=== PATIENT | male | born 1970 | race Caucasian/White ===

== ENCOUNTER 2018-04-26 00:42 | Outpatient (CLI) | payer MEDICARE, OTHER, SELFPAY ==
--- NOTE | 2018-04-26 09:46 | DI.REPORT_ITS ---
SYMPTOM/DIAGNOSIS: LUMBAGO, RADIATION TO FLANKS, PERSISTENT FOR 4 MONTHS LUMBOSACRAL SPINE: 04/26 Six views were obtained. There is mild disc space narrowing at L5-S1 with hypertrophic changes of the end plates at this level. Otherwise intervertebral disc spaces are well maintained. Mild hypertrophic spurring of the facet joints noted particularly in the lower lumbar region. SI joints show minimal degenerative changes as well. No evidence of spondylolysis or spondylolisthesis. No compression fracture is seen. CONCLUSION: No evidence of acute process. Mild degenerative changes. Please note that there is calcification overlying the lower pole of the left kidney and the possibility of nephrolithiasis is raised.
== END 2018-04-26 00:43 ==
PROVIDERS: PCP Internal Medicine; Visit Provider Internal Medicine
DX: M54.16 Radiculopathy, lumbar region (principal); M51.37 Other intervertebral disc degeneration, lumbosacral region
CPT/HCPCS: 72110

== ENCOUNTER → 2019-07-03 10:11 | Outpatient (BNVA) | payer MEDICARE, OTHER, SELFPAY | PROVIDERS: PCP Internal Medicine; Referring Provider Internal Medicine; Visit Provider Psychiatry & Neurology Neurology | DX: F39 Unspecified mood [affective] disorder (principal); R41.844 Frontal lobe and executive function deficit; R41.3 Other amnesia; Z87.820 Personal history of traumatic brain injury | CPT/HCPCS: 99204 ==

== ENCOUNTER 2019-07-09 09:44 | Outpatient (REF) | payer MEDICARE, OTHER, SELFPAY ==
[2019-07-09 20:15] LABS: TSH (W/Ref FT4) 2.15 uIU/mL (0.36-3.74); Vitamin B12 342 pg/mL (193-986)
== END 2019-07-09 10:04 ==
LOC: LBN 09:44
PROVIDERS: PCP Internal Medicine; Referring Provider Psychiatry & Neurology Neurology; Visit Provider Internal Medicine
DX: R41.3 Other amnesia (principal); I10 Essential (primary) hypertension
CPT/HCPCS: 82607; 84443

== ENCOUNTER → 2019-12-18 08:47 | Outpatient (BNVA) | payer MEDICARE, OTHER, SELFPAY | PROVIDERS: PCP Internal Medicine; Referring Provider Internal Medicine; Visit Provider Psychiatry & Neurology Neurology | DX: R69 Illness, unspecified (principal) ==

== ENCOUNTER 2020-03-19 13:13 | Outpatient (REF) | payer MEDICARE, OTHER, SELFPAY ==
[2020-03-19 19:23] LABS: HCT 48.6 % (40.0-50.0); HGB 16.4 g/dL (13.5-17.5); Mean Corp. HGB Concentration 33.7 g/dL (32.0-36.0); Mean Corpuscular Hemoglobin 30.1 pg (27.0-33.0); Mean Corpuscular Volume 89.3 fL (80-95); Mean Platelet Volume 11.5 fL (8.0-11.0); Platelet Count 183 x1000/uL (130-400); RBC 5.44 m/cumm (4.50-6.00); RBC Distribution Width 13.7 % (11.8-14.1)
[2020-03-19 19:43] LABS: Anion Gap 11.6 mmol/L (3-11); BUN 17 mg/dL (7-18); CO2 25.4 mmol/L (21.0-32.0); CREATININE 1.04 mg/dL (0.70-1.30); Calcium 8.9 mg/dL (8.5-10.1); Chloride 104 mmol/L (98-107); Glucose 100 mg/dL (74-106); Potassium 4.2 mmol/L (3.5-5.1); Sodium 141 mmol/L (136-145); Uric Acid 6.6 mg/dL (3.5-7.2)
[2020-03-19 20:40] LABS: ESR 9 mm/hr (0-15)
== END 2020-03-19 13:33 ==
LOC: NCHCN 13:13
PROVIDERS: PCP Internal Medicine; Visit Provider Internal Medicine
DX: M10.9 Gout, unspecified (principal)
CPT/HCPCS: 80048; 85027; 85652; 84550; 86140

== ENCOUNTER 2021-08-16 19:02 | Outpatient (REF) | payer MEDICARE, OTHER, SELFPAY ==
[2021-08-16 19:39] LABS: ALT 25 U/L (16-63); Anion Gap 7.9 mmol/L (3-11); BUN 12 mg/dL (7-18); CO2 30.1 mmol/L (21.0-32.0); CREATININE 1.1 mg/dL (0.70-1.30); Calcium 8.5 mg/dL (8.5-10.1); Calculated LDL 105 mg/dL (<100); Chloride 104 mmol/L (98-107); Cholesterol 218 mg/dL (<200); Glucose 95 mg/dL (74-106); HDL Cholesterol 50 mg/dL (40-60); Potassium 4.5 mmol/L (3.5-5.1); Sodium 142 mmol/L (136-145); Triglyceride 319 mg/dL (<150)
== END 2021-08-16 19:03 | disposition home or self-care (01) ==
LOC: NCHCN 19:02
PROVIDERS: PCP Internal Medicine; Visit Provider Internal Medicine
DX: D35.00 Benign neoplasm of unspecified adrenal gland (principal); R31.0 Gross hematuria; R00.2 Palpitations
CPT/HCPCS: 80048; 80061; 84460

== ENCOUNTER 2022-06-22 19:26 | Outpatient (REF) | payer MEDICARE, OTHER, SELFPAY ==
[2022-06-22 21:06] LABS: HCT 46.7 % (40.0-50.0); HGB 15.5 g/dL (13.5-17.5); MCH 30.2 pg (27.0-33.0); MCHC 33.2 % (32.0-36.0); MCV 91 fL (80-95); MPV 12.2 fL (8.0-11.0); Platelet Count 246 10^3/uL (130-400); RBC 5.13 10^6/uL (4.36-5.78); RDW 13.2 % (11.8-14.1); RDW-SD 44.3 fL; WBC 11.37 10^3/uL (4.4-10.8)
[2022-06-22 21:27] LABS: ALT 25 U/L (16-63); AST 19 U/L (15-37); Albumin 4.1 g/dL (3.4-5.0); Alkaline Phosphatase 66 U/L (46-116); Anion Gap 8.1 mmol/L (3-11); BUN 16 mg/dL (7-18); Bilirubin, Total 0.3 mg/dL (0.2-1.0); CO2 27.9 mmol/L (21.0-32.0); CREATININE 1.1 mg/dL (0.70-1.30); Calcium 9.2 mg/dL (8.5-10.1); Calculated LDL 114 mg/dL (<100); Chloride 102 mmol/L (98-107); Cholesterol 236 mg/dL (<200); Estimated GFR 80.77 (mL/min/1.73m2); Glucose 103 mg/dL (74-106); HDL Cholesterol 48 mg/dL (40-60); Potassium 4.5 mmol/L (3.5-5.1); Sodium 138 mmol/L (136-145); TSH 1.21 uIU/mL (0.36-3.74); Total Protein 7.6 g/dL (6.4-8.2); Triglyceride 373 mg/dL (<150)
== END 2022-06-22 19:27 | disposition home or self-care (01) ==
LOC: NCHCN 19:26
PROVIDERS: PCP Internal Medicine; Visit Provider Internal Medicine
DX: R00.2 Palpitations (principal); R00.0 Tachycardia, unspecified
CPT/HCPCS: 80053; 80061; 85027; 84443

== ENCOUNTER 2022-06-30 10:52 | Outpatient (RCR) | payer MEDICARE, OTHER, SELFPAY ==
--- NOTE | 2022-06-30 11:00 | HOLTER_ITS ---
APPROVED REPORT Conclusion This is a 48-hour Holter monitor ordered for palpitations Rhythm throughout was sinus with an average heart rate of 70. Minimum was 51, maximum 112 There were very rare isolated atrial premature beats There were occasional ventricular ectopic beats There was no atrial fibrillation, no high-grade AV block, no SVT, no pauses greater than 3 seconds No patient symptoms were reported
== END 2022-07-11 23:59 | disposition home or self-care (01) ==
LOC: CARDOPNVT 10:52
PROVIDERS: PCP Internal Medicine; Visit Provider Internal Medicine
DX: R00.2 Palpitations (principal)
CPT/HCPCS: 93227; 93225; 93226

== ENCOUNTER → 2023-07-18 00:41 | Outpatient (CLI) | payer MEDICARE, SELFPAY ==
--- NOTE | 2023-07-18 | ETT_ITS ---
APPROVED REPORT Exam: Exercise Treadmill Patient Location: Out-Patient Room/Bed: Stress Nurse: Charlee Ko RN Ordering Provider:MARRY IBARRA, Contact Number: [phone] BMI: 36.51 Baseline Rhythm: Sinus Bradycardia Indications: CAD, Medical History Medical History: Athersclerosis, TBI, Palpitations, alcohol abuse, obesity, smoker, short term memory loss Cardiac Medications: Fluoxetine, multivitamin, lamotrigine, atorvastatin Allergies: NKDA Cardiac Risk Factors: Family hx, CVD, smoker, obesity Previous Cardiac Procedures: None Pretest Chest Pain Characteristics: None Exercise History: Sedentary Physical Disabilities: None Lung Sounds: Clear to auscultation Heart Sounds: Tachycardia Stress Test Details Test: Exercise stress testing was performed using a Evan protocol. Rest Stress HR Resting HR Supine: 51 bpm Max Heart Rate (APMHR): 166 bpm Resting HR Standin bpm Target HR (85% APMHR): 141 bpm Max HR Achieved: 132 bpm % of APMHR: 80 Recovery HR: 65 bpm HR response to stress: Normal HR response to stress BP Resting BP Supine: 114/82 mmHg Resting BP Standin/72 mmHg Max BP: 174/84 mmHg Recovery BP: 138/74 mmHg BP response to stress: Normal blood pressure response to stress. ECG Resting ECG: Sinus Bradycardia Ectopy: None Stress ECG: Sinus Tachycardia ST Change: Nondiagnostic low heart rate Arrhythmia: None Recovery ECG: Sinus Rhythm Recovery ST Change: Nondiagnostic low heart rate Recovery Arrhythmia: None Clinical Reason for Termination: Fatigue, Dyspnea Stress Symptoms: Moderate fatigue, moderate dyspnea Exercise duration: 06 min05 sec Highest Stage Reached: Stage 2: 2.5 mph at 12% grade. Exercise capacity: 8.31 METs Angina Score: None Mcgowan Treadmill Score: 6.4 Rate Pressure Product: [id number] Stress ECG Conclusion 1. The resting electrocardiogram was normal 2. Patient exercised on the Evan protocol and completed a workload of 8.31 METS, stopping due to fat igue 3. Normal heart rate and blood pressure response to exercise. Peak heart rate achieved was 80% of ma ximal predicted for age 4. At that heart rate and workload, there was no electrocardiographic evidence of myocardial ischemia though the test was technically nondiagnostic as it did not achieve 85% MPHR for age 5. There were no dysrhythmias Mcgowan Treadmill Score is 6.4 which is Low risk. Stress Test Summary STAGE Time (mins) Speed (mph) Grade (%) HR BP SpO2 SYMPTOMS METS Supine 51 114/82 92 Standing 63 124/72 92 1 3 1.7 10 93 128/80 94 4.5 2 6 2.5 12 130 158/80 95 Moderate dysonea, moderate fatigue 7 1 min recovery 97 174/84 95 Mild dyspnea 3 min recovery 66 138/72 95 6 min recovery 65 138/74 All symptoms resolved
== END ==
PROVIDERS: PCP Internal Medicine; Visit Provider Internal Medicine
DX: I25.10 Atherosclerotic heart disease of native coronary artery without angina pectoris (principal)
CPT/HCPCS: 93016; 93018; 93017

== ENCOUNTER → 2023-07-19 10:16 | Outpatient (BNVA) | payer MEDICARE, SELFPAY | PROVIDERS: PCP Internal Medicine; Referring Provider Internal Medicine; Visit Provider Podiatrist | DX: L84 Corns and callosities (principal); Q82.8 Other specified congenital malformations of skin; M79.671 Pain in right foot | CPT/HCPCS: 17110 ==

== ENCOUNTER → 2023-11-22 10:22 | Outpatient (BNVA) | payer MEDICARE, SELFPAY | PROVIDERS: PCP Internal Medicine; Referring Provider Internal Medicine; Visit Provider Podiatrist | DX: L60.3 Nail dystrophy (principal); M79.671 Pain in right foot; Q82.8 Other specified congenital malformations of skin | CPT/HCPCS: 99212 ==

== ENCOUNTER 2024-02-14 15:01 | Outpatient (REF) | payer MEDICARE, BC, SELFPAY ==
[2024-02-19 20:26] LABS: Index Value 0.78 (0.00-0.79); Mumps Ab, IgG Positive; Mumps Ab, IgM Negative (Negative)
== END 2024-02-14 15:02 | disposition home or self-care (01) ==
LOC: LBN 15:01
PROVIDERS: PCP Internal Medicine; Visit Provider Physician Assistant
DX: R22.1 Localized swelling, mass and lump, neck (principal); K11.21 Acute sialoadenitis; J02.9 Acute pharyngitis, unspecified
CPT/HCPCS: 83735; 86735

== ENCOUNTER 2024-03-07 15:47 | Outpatient (REF) | payer MEDICARE, BC, SELFPAY ==
[2024-03-07 19:09] LABS: Abs Immature Grans 0.05 10^3/uL (0.0-0.06); Absolute Basophil Count 0.08 10^3/uL (0.0-0.2); Absolute Eosinophil Count 0.25 10^3/uL (0.0-0.7); Absolute Lymphocyte Count 2.18 10^3/uL (1.2-3.4); Absolute Monocyte Count 0.83 10^3/uL (0.1-0.8); Absolute Neutrophil Count 5.28 10^3/uL (1.2-6.7); Basophils % 0.9 %; Eosinophils % 2.9 %; HCT 46.1 % (40.0-50.0); HGB 15.3 g/dL (13.5-17.5); Immature Grans % 0.6 %; Lymphocytes % 25.1 %; MCH 30.1 pg (27.0-33.0); MCHC 33.2 % (32.0-36.0); MCV 91 fL (80-95); MPV 10.9 fL (8.0-11.0); Monocytes % 9.6 %; Neutrophils % 60.9 %; Platelet Count 233 10^3/uL (130-400); RBC 5.08 10^6/uL (4.36-5.78); RDW 12.6 % (11.8-14.1); RDW-SD 41.8 fL; WBC 8.67 10^3/uL (4.4-10.8)
[2024-03-07 19:31] LABS: Hemoglobin A1C 5.6 % (<5.7)
[2024-03-07 20:42] LABS: TSH 2.08 uIU/Ml (0.36-3.74); Vitamin D 25 Total 27.4 ng/mL (30-100)
== END 2024-03-07 15:48 | disposition home or self-care (01) ==
LOC: LBN 15:47
PROVIDERS: PCP Internal Medicine; Visit Provider Registered Nurse
DX: Z51.81 Encounter for therapeutic drug level monitoring (principal); F59 Unspecified behavioral syndromes associated with physiological disturbances and physical factors; S06.9X9A Unspecified intracranial injury with loss of consciousness of unspecified duration, initial encounter
CPT/HCPCS: 80175; 82306; 83036; 84443; 85025

== ENCOUNTER → 2024-10-01 12:58 | Outpatient (BNVA) | payer MEDICARE, BC, SELFPAY | PROVIDERS: PCP Internal Medicine; Referring Provider Internal Medicine; Visit Provider Podiatrist | DX: L60.3 Nail dystrophy (principal); M79.671 Pain in right foot; Q82.8 Other specified congenital malformations of skin; L84 Corns and callosities | CPT/HCPCS: 17110 ==

== ENCOUNTER 2024-12-26 19:13 | Outpatient (REF) | payer MEDICARE, BC, SELFPAY ==
[2024-12-26 20:26] LABS: ALT 29 U/L (16-63); AST 19 U/L (15-37); Alkaline Phosphatase 78 U/L (46-116); Anion Gap 7.2 mmol/L (3-11); BUN 14 mg/dL (7-18); Bilirubin, Total 0.3 mg/dL (0.2-1.0); CO2 32.8 mmol/L (21.0-32.0); CREATININE 1.2 mg/dL (0.70-1.30); Calcium 9.6 mg/dL (8.5-10.1); Calculated LDL 59 mg/dL (<100); Chloride 107 mmol/L (98-107); Cholesterol 187 mg/dL (<200); Estimated GFR 71.42 (mL/min/1.73m2); Glucose 106 mg/dL (74-106); HDL Cholesterol 70 mg/dL (>or=40); Sodium 147 mmol/L (136-145); Total Protein 7.4 g/dL (6.4-8.2); Triglyceride 291 mg/dL (<150)
[2024-12-26 21:01] LABS: Uric Acid 5.7 mg/dL (3.5-7.2)
[2024-12-30 10:04] LABS: Hepatitis C Ab w Rflx HCV PCR Negative (Negative)
[2024-12-30 11:55] LABS: HIV-1/2 Ag & Ab Screen Negative (Negative)
== END 2024-12-26 19:14 | disposition home or self-care (01) ==
LOC: NCHCN 19:13
PROVIDERS: PCP Internal Medicine; Visit Provider Internal Medicine
DX: E78.5 Hyperlipidemia, unspecified (principal)
CPT/HCPCS: 80053; 80061; 86803; 87389; 84550

== ENCOUNTER 2025-01-02 02:27 | Outpatient (CLI) | payer MEDICARE, BC, SELFPAY ==
--- NOTE | 2025-01-30 11:13 | W.PFT ---
Date of service: 01/02/25 Time of Service: 14:24 Pulmonary Function Test Result Indications: Smoking Interpretation Spirometry: There is moderate airflow limitation. Impression Moderate airflow obstruction Clinical Correlation therefore is recommended.
== END 2025-01-02 02:28 | disposition home or self-care (01) ==
LOC: RT 02:27
PROVIDERS: PCP Internal Medicine; Visit Provider Student in an Organized Health Care Education/Training Program
DX: F17.210 Nicotine dependence, cigarettes, uncomplicated (principal); Z13.83 Encounter for screening for respiratory disorder NEC
CPT/HCPCS: 94010

== ENCOUNTER 2025-01-15 00:32 | Outpatient (CLI) | payer MEDICARE, BC, SELFPAY ==
--- NOTE | 2025-01-15 | DI.CTLCSR_ITS ---
Exam(s) CT CHEST LUNG CANCER SCREEN EXAM: CT CHEST LUNG CANCER SCREEN CLINICAL HISTORY: TOBACCO DEPENDENCE CAUSED BY CIGARETTES,f17.210,CURRENT SMOKER,SCREENING. TECHNIQUE: Imaging Protocol: Low Dose Technique CONTRAST MATERIAL: None COMPARISON: No exams were available for comparison FINDINGS: CHEST: LUNGS: There is a noncalcified right lower lobe nodule measuring 7 mm (series 3/image 116). No other right lower lobe nodules. There is a tiny 2 millimeter benign granuloma in the lateral aspect of th e right upper lobe. No significant left lung nodules. Some scarring in the anterior aspect of both upper lobes is noted. No confluent infiltrates. No pleural effusions. MEDIASTINUM: There is no obvious hilar nor mediastinal adenopathy. CARDIAC: Heart size is normal. There is mild thickening of the anterior pericardium. Caliber of the thoracic aorta is within normal limits. OTHER: Gallstones noted. OSSEOUS: No significant osseous lesions.No fractures. IMPRESSION: 1. There is a 7 millimeter noncalcified nodule in the right lower lobe. 2. No other significant nodules and no pleural effusions 3. Lung RADS Cat 3 - Probably Benign: Probably benign finding(s) - short term follow-up suggested; in clude nodules with a low likelihood of becoming a clinically active cancer. Lung-RADS 1.0 CATEGORIES: Category 0 - Prior chest CT exam(s) being located for comparison. Category 1 - Annual screening in 12 months. No nodules or definitely benign nodules. Category 2 - Annual screening in 12 months. Benign appearance. Nodules with low likelihood of becomin g active cancer. Category 3 - 6-month follow-up. Probably benign. Short-term follow-up suggested. Nodules with low lik elihood of becoming active cancer. Category 4A - 3-month follow-up and CT/PET if >8 mm in size. Suspicious finding. Findings which requi re additional testing. Category 4B - Findings which require additional testing and tissue sampling. Category 4X - Category 3 or 4 nodules with additional features or imaging findings that increases the suspicion of malignancy. Modifier S- Potentially clinically significant findings (non lung cancer) RADIATION DOSE DELIVERED: 76.6mGy.cm Total DLP DATA REPOSITORY: All CT scans at this facility are submitted to the National Radiology Data Registry (NRDR) Dose Index Registry (DIR) with the [employer] (ACR). RADIATION OPTIMIZATION: All CT scans at this facility use at least one of these dose optimization te chniques: automated exposure control; mA and/or kV adjustment per patient size (includes targeted exa ms where dose is matched to clinical indication); or iterative reconstruction.
== END 2025-01-15 00:52 ==
LOC: DI 00:33
PROVIDERS: PCP Internal Medicine; Visit Provider Internal Medicine
DX: F17.210 Nicotine dependence, cigarettes, uncomplicated (principal); Z12.2 Encounter for screening for malignant neoplasm of respiratory organs; R91.8 Other nonspecific abnormal finding of lung field
CPT/HCPCS: 71271

== ENCOUNTER → 2025-04-30 08:47 | Outpatient (BNVA) | payer MEDICARE, BC, SELFPAY | PROVIDERS: PCP Internal Medicine; Referring Provider Internal Medicine; Visit Provider Physical Therapy Assistant | DX: Z12.11 Encounter for screening for malignant neoplasm of colon (principal) | CPT/HCPCS: S0285 ==

== ENCOUNTER 2025-05-15 07:32 | Day surgery (SDC) | payer MEDICARE, BC, SELFPAY ==
[2025-05-15 07:44] VITALS: BP 158/98; PULSE 77; RESP 16; TEMP 36; O2SAT 96
[2025-05-15] MEDS: Lactated Ringers 1,000 ML 80 ML IV (08:14)
--- NOTE | 2025-05-15 09:42 | W.ANESPRE ---
General Info Date of Service Date Performed: 05/15/25 Height: 6 ft 4 in Weight: 147.6 kg Body Mass Index (BMI): 39.6 Surgical Procedure: Operation Date: 05/15/25 09:20 Proposed Procedure Side Surgeon celso Rodríguez MD Meds Allergies and Home Medications Allergies Allergy/AdvReac Type Severity Reaction Status Date / Time No Known Allergies Allergy Verified 05/15/25 07:48 Home Medication ?Medication ?Instructions ?Recorded fluoride (sodium) 0.2 % dental 10 ml dental QWEEK 05/24/19 solution (PreviDent) Held on 05/13/25. Instructions: Changed by Provider ibuprofen 800 mg tablet 800 mg PO TID 05/24/19 multivitamin 1 tab PO DAILY 05/24/19 cyanocobalamin (vitamin B-12) 1,000 mcg PO DAILY #90 caps 08/13/20 1,000 mcg capsule fluoxetine 20 mg/5 mL (4 mg/mL) 30 mg PO DAILY 03/22/23 oral solution fluticasone propionate 50 2 spray intranasal DAILY 03/22/23 mcg/actuation nasal spray,suspension lamotrigine 200 mg tablet 200 mg PO DAILY 03/22/23 atorvastatin 20 mg tablet 20 mg PO DAILY 09/20/24 bisacodyl 5 mg tablet,delayed 5 mg PO ONCE #4 tabs 04/30/25 release (Dulcolax (bisacodyl)) polyethylene glycol 3350 17 17 g PO ONCE #238 grams 04/30/25 gram/dose oral powder Current Visit Medications: Current Medications Generic Name Dose Route Start Last Admin Trade Name Freq PRN Reason Stop Dose Admin Ringer's Solution 1,000 mls @ 80 mls/hr 05/15/25 06:00 05/15/25 08:14 IV 05/15/25 23:59 80 mls/hr INFUSION LAZARA Administration IV Miscellaneous Supplies 1 each 05/15/25 06:00 Iv Access IV 05/15/25 23:59 DIRECTED LAZARA Sodium Biphosphate/Sodium Phosphate 133 - 266 ml 05/14/25 14:15 Na Phosphate Enema-Adult 133 Ml Btl PA 06/13/25 14:14 PRN PRN Sodium Chloride 0 ml 05/15/25 06:00 Normal Saline Flush 10 Ml Syr IV 05/15/25 23:59 PRN PRN Sodium Chloride 0 ml 05/15/25 06:00 Normal Saline 10 Ml Vial IJ 05/15/25 23:59 DIRECTED PRN Sterile Water 0 ml 05/15/25 06:00 Water,Injection,Sterile 10 Ml Vial IJ 05/15/25 23:59 DIRECTED PRN PFSH Active Problems Active Problems: Problem Status Onset Code Long toenail Acute L60.2 Intracranial injury Acute S06.9XAA Amnesia Acute R41.3 Tobacco dependence Acute F17.200 Atherosclerosis of artery Acute I70.90 Porokeratosis Acute Q82.8 Keratosis punctata (palmaris et plantaris) Acute L85.2 Foot pain, right Acute M79.671 Smoker Acute F17.200 Tachycardia Acute R00.0 Nail dystrophy Acute L60.3 Mood disorder Acute F39 Frontal lobe deficit Acute R41.844 Short-term memory loss Acute R41.3 TBI (traumatic brain injury) Acute S06.9X9A Palpitations Acute R00.2 Hand tingling Acute R20.2 Gross hematuria Acute R31.0 Facial skin lesion Acute L98.9 Skin tag Acute L91.8 Medical History Medical History Dyslipidemia Vitamin D deficiency Benign neoplasm of adrenal gland Pityriasis versicolor Left ureteral stone (05/03/16) Adenoma of right adrenal gland (05/03/16) Gout Ureteral calculus Adrenal adenoma benign Lumbago with sciatica resolved Surgical History Surgical History S/P craniotomy Tobacco Smoking/Tobacco Use Status: Current every day Tobacco Type: cigarettes Alcohol Alcohol Intake: current Alcohol intake frequency: a few times a week Alcohol type: beer Substance Use Substance use: Daily Substance use type: marijuana Vital Signs and Lab Results Vital Signs Most Recent Vital Signs in EMR: Most Recent Vital Signs Temp Pulse Resp BP Pulse Ox 36 C L 77 16 158/98 H 96 05/15/25 07:44 05/15/25 07:44 05/15/25 07:44 05/15/25 07:44 05/15/25 07:44 Anesthesia Assessment and Plan Anesthesia History Personal History: No History of Anesthesia Complications Family History: No Family History of Anesthesia Complications Exercise Tolerance Exercise Tolerance: Metabolic Equivalents>4 Pertinent Negatives Pertinent Negatives: No Symptoms of GERD Cardiac & Pulmonary Exam Cardiac Exam: Normal S1/S2 Heart Sounds Pulmonary Exam: Clear Bilateral Breath Sounds Implantable Cardiac Device Does patient have a Pacemaker or an ICD?: No Airway Exam Known Difficult Airway: No Mallampati Class: 2 Mouth Opening: Normal (> 3cm) Thyromental Distance: Greater than 3 cm Neck Range of Motion: Full ROM Neck Circumference: Normal Teeth Condition: Normal Dentition ASA Classification ASA Score: ASA 2 Emergency Case?: No NPO Status NPO Status: NPO Clears >2 hours, Solids >8 hours Anesthesia Plan Resuscitation Status: Full Code Anesthesia Technique: General Anesthesia Airway Planned: Natural Airway Monitors Used: Standard Monitors
[2025-05-15 09:43] VITALS: BMI 39.6
--- NOTE | 2025-05-15 09:51 | W.PM.DSUDISC ---
Date of service: 05/15/25 Discharge Plan Disposition Condition: Stable Discharge Details Attending Provider: Lucia Rodríguez Primary Care Provider: Sunny Magallanes Home Meds and New Rx's Prescriptions: Continued atorvastatin 20 mg tablet 20 mg PO DAILY multivitamin Tablet 1 tab PO DAILY fluoride (sodium) [PreviDent] 0.2 % solution 10 ml DT QWEEK ibuprofen 800 mg tablet 800 mg PO TID cyanocobalamin (vitamin B-12) 1,000 mcg capsule 1,000 mcg PO DAILY Qty: 90 3RF fluoxetine 20 mg/5 mL (4 mg/mL) solution 30 mg PO DAILY fluticasone propionate 50 mcg/actuation spray,suspension 2 spray intranasal DAILY Rx Instructions: administer into each nostril lamotrigine 200 mg tablet 200 mg PO DAILY Discontinued bisacodyl [Dulcolax (bisacodyl)] 5 mg tablet,delayed release (DR/EC) 5 mg PO ONCE Qty: 4 0RF Rx Instructions: Take per colonoscopy instructions provided by ordering providers office polyethylene glycol 3350 17 gram/dose powder 17 g PO ONCE Qty: 238 0RF Rx Instructions: Take per colonoscopy instructions provided by ordering providers office Discharge Instructions Additional Instructions: Four polyps seen and removed, one was a 25mm (very large) polyp from the right side of the colon. Timing of next colonoscopy will depend on the path of the polyps. You will likely need another colonoscopy in 1-3 years. I will notify you in writing of the answer when I get our polyp biopsy result back after 10 days. Stand Alone Forms: Anesthesia Discharge Inst., Colonoscopy Post Instructions, Bobby Merchant (DSU) Activity:: Activity as Tolerated Diet:: As Tolerated DS: Diagnosis Discharge Diagnosis (1) Screening for colorectal cancer: Status: Acute
--- NOTE | 2025-05-15 09:54 | COLE_ITS ---
Date of service: 05/15/25 Time of Service: 10:30 Colonoscopy Report Pre-op diagnosis general: Screening for colorectal cancer Post-op diagnosis procedure note: same Procedure: Colonoscopy with cold and hot snare polypectomy Surgeon: Lucia Rodríguez Anesthesia Type: General:No Airway Estimated blood loss (mL): 0 Pathology: none sent Complications: None Disposition: same day Indications: screening for colorectal cancer Prep: Miralax/Dulcolax (Good) Procedure Description: Patient is here for routine screening colonoscopy. Informed consent was obtained and the patient was taken to the procedure area. The patient was placed in left lateral decubitus position on the procedure table. Timeout was performed. Anesthesia was induced. A lubricated colonoscope was inserted t hrough the anus and passed to the cecum. The cecum was identified by the ileocecal valve and the appendiceal orifice. The scope was then slowly withdrawn and the colonic and rectal mucosa examined. Ascending colon with 25mm pedunculated polyp and 8mm pedunculated polyp. The larger polyp was removed with hot snare and retrieved with Sandhu net intact through the rectum. Resolution endoclip used to close the mucosa. The 8mm polyp was hot snared intact and removed through the scope and suction trap with Sandhu net. Descending colon with 6mm pedunculated polyp removed with hot snare and retrieved with polyp trap. Sigmoid colon with 5mm pedunculated polyp removed with cold snare and retrieved with polyp trap. No diverticulosis was seen. The scope was retroflexed in the anorectal junction examined. Uncomplicated internal hemorrhoids present. Assessment and plan; Multiple ascending colon polyps including 25mm polyp. Descending colon polyp. Sigmoid polyp. Four polyps seen and removed, one was a 25mm pedunculated polyp from the ascending colon. Timing of next colonoscopy will depend on the path of the polyps.
--- NOTE | 2025-05-15 10:03 | BOWEL_PTH ---
PATIENT: Jose Ayala IV LOC: [facility] U#:[id number] AGE/SX: 54/M ROOM: RE05/15/[address]: Lucia Rodríguez MD : 1970 BED: DIS: 05/15/2025 SPEC #: [id number] RECD: 05/15/25 12:51 STATUS: ILDA REQ #: [id number] [place]: 05/15/25 10:[address]: Lucia Rodríguez DEPT: Surgical Specimen RECD BY: Anna Howard ENTERED: 05/15/25 12:52 SP TYPE: Bowel OTHR DR: Sunny Magallanes Tissues: 1 - BIOPSY BOWEL 2 - BIOPSY BOWEL 3 - BIOPSY BOWEL Procedures: GROSS AND MICRO LEVEL 4 Comments: [id number]
[2025-05-15 10:39] VITALS: BP 118/74; PULSE 68; RESP 16; TEMP 36; O2SAT 93
--- NOTE | 2025-05-15 10:59 | W.ANESPOSTOP ---
Postoperative Evaluation Date, Time and Location Date Performed: 05/15/25 Time Performed: 10:59 Patient Location: Day Surgery Unit Vital Signs Most Recent Imported Vital Signs: Most Recent Vital Signs Temp Pulse Resp BP Pulse Ox 36 C L 68 16 118/74 93 05/15/25 10:39 05/15/25 10:39 05/15/25 10:39 05/15/25 10:39 05/15/25 10:39 Pain Score Most Recent Pain Score: Most Recent Pain Score Pain Level 0 05/15/25 10:39 Assessment Mental Status: Awake (Alert & Oriented to Patient Baseline) Airway and Respiratory Function: Patent airway with normal (patient baseline) respiratory exam Cardiovascular Function: Hemodynamically Stable Hydration Status: Adequately Hydrated Nausea & Vomiting: No Nausea or Vomiting Pain: Pt. Denies Any Pain Peripheral Nerve Block: Patient did not receive a nerve block
[2025-05-15 11:16] VITALS: BP 131/83; PULSE 62; RESP 16; TEMP 36.6; O2SAT 96
== END 2025-05-15 11:22 | disposition home or self-care (01) ==
LOC: SUR 07:32
PROVIDERS: PCP Internal Medicine; Visit Provider Surgery
PROC: 0DJD8ZZ Inspection of Lower Intestinal Tract, Via Natural or Artificial Opening Endoscopic (ICD-10-PCS; CPT 45378; principal; 2025-05-15 09:15)
DX: Z12.11 Encounter for screening for malignant neoplasm of colon (principal); Z12.12 Encounter for screening for malignant neoplasm of rectum; D37.4 Neoplasm of uncertain behavior of colon; D12.4 Benign neoplasm of descending colon; D12.5 Benign neoplasm of sigmoid colon
CPT/HCPCS: 45385; 88305; J2003; J2704

== ENCOUNTER → 2025-06-05 11:00 | Outpatient (BNVA) | payer MEDICARE, BC, SELFPAY | PROVIDERS: PCP Internal Medicine; Referring Provider Internal Medicine; Visit Provider Podiatrist | DX: Q82.8 Other specified congenital malformations of skin (principal); L60.3 Nail dystrophy; L84 Corns and callosities; M79.671 Pain in right foot | CPT/HCPCS: 17110 ==

== ENCOUNTER → 2025-07-17 11:09 | Outpatient (BNVA) | payer MEDICARE, BC, SELFPAY | PROVIDERS: PCP Internal Medicine; Referring Provider Internal Medicine; Visit Provider Podiatrist ==

== ENCOUNTER → 2025-08-19 00:39 | Outpatient (CLI) | payer MEDICARE, BC, SELFPAY ==
--- NOTE | 2025-08-19 11:00 | DI.CT_ITS ---
Exam(s) CT CHEST WO EXAM: CT CHEST WO CLINICAL HISTORY: RT LOWER LOBE PULMONARY NODULE SOLITARY, R91.1, 6 MO F/U. TECHNIQUE: Imaging protocol: Axial computed tomography images were obtained and coronal and sagittal reformatted images were created and reviewed. Computer aided detection (CAD) was utilized. CONTRAST MATERIAL: Noncontrast COMPARISON: CT RENAL COLIC WO CONTRAST from 03/23/[address] ABDOMEN W from 04/18/[address] CHEST LUNG CANCER SCREEN from 01/15/2025 FINDINGS: Pulmonary parenchyma: No consolidation. Stable 7 millimeter circumscribed ovoid nodule in the posterior right lower lobe. New nodules. Interstitial changes: None. Emphysema: None. Tracheobronchial tree: No mucous plugging. No bronchiectasis . Pleura: No effusion or pneumothorax. Heart: The left ventricle is mildly dilated. The coronary arteries show mild calcifications. Aorta: Thoracic aorta non-dilated. No significant atherosclerotic changes. Lymph nodes: No enlarged lymph nodes. Bones: Mild degenerative changes are seen. No evidence of compression fracture. Upper abdomen: Stable appearance of right adrenal adenoma. Gallstones again noted. Soft tissues: Unremarkable. IMPRESSION: Stable right lower lobe nodule. A low-dose screening chest CT is recommended in 12 months. RADIATION DOSE DELIVERED: 378.66mGy.cm Total DLP 378.66mGy.cm Total DLP DATA REPOSITORY: All CT scans at this facility are submitted to the National Radiology Data Registry (NRDR) Dose Index Registry (DIR) with the [employer] (ACR). RADIATION OPTIMIZATION: All CT scans at this facility use at least one of these dose optimization techniques: automated exposure control; mA and/or kV adjustment per patient size (includes targeted exams where dose is matched to clinical indication); or iterative reconstruction.
== END ==
LOC: DI 00:39
PROVIDERS: PCP Internal Medicine; Visit Provider Internal Medicine
DX: R91.1 Solitary pulmonary nodule (principal)
CPT/HCPCS: 71250